=== PATIENT | female | born 1970 | race Caucasian/White ===

== ENCOUNTER 2017-01-08 01:39 | Emergency (ER) | payer MEDICARE ==
[~2017-01-08] VITALS: Ht 160 cm; Wt 63.6 kg
[2017-01-08 01:45] VITALS: BP 128/89; PULSE 97; RESP 16; O2SAT 98
--- NOTE | 2017-01-08 01:49 | ED.REPORT ---
HPI-Dental/Mouth Prob Date of Service Jan 08, 2017 ED Provider: Dr. Olvera Pt is a 46 year old female with a hx of epilepsy presenting to the ED complaining of right lower dental pain. She reports that she is going to have the tooth pulled in the morning. She denies any drainage or any other symptoms at this time. Nursing Notes Stated Complaint: DENTAL PAIN Chief Complaint: Dental Nursing Notes Reviewed: Yes Allergies: Coded Allergies: meperidine (Verified Allergy, Unknown, 01/08/17) General Time Seen by MD: 01:49 Chief Complaint Tooth pain Hx Obtained From: Patient Arrived By: Walk-in Onset Occurred: Just prior to arrival Symptom Duration: Since onset Quality: Painful Severity: Current: Moderate Severity: Maximum: Moderate Recent Healthcare: No recent doctor visit, No recent hospitalization Similar Sx Previous: No Past Medical History Past Medical History Epilepsy Past Surgical History denies Smoking History Unknown if Ever Smoker Social History Drug Use: Denies drug use Ambulatory Status Independent Review of Systems Constitutional: Denies: Weakness - generalized Ears / Nose / Throat: Reports: Toothache Respiratory: Denies: Shortness of breath GI: Denies: Vomiting Complete sys rev & neg: except as marked. Physical Exam Initial Vital Signs Vital Signs (First) Date Time Temp Pulse Resp B/P Pulse Ox O2 Delivery O2 Flow Rate FiO2 01/08/17 01:45 36.1 97 16 128/89 98 Room Air Initial VS: Reviewed, Vital signs normal General/Constitutional: Well-developed, Well-nourished Head / Eyes: Atraumatic, Normocephalic, PERRL Respiratory: Breath sounds normal, Clear to auscultation, No respiratory distress Cardiovascular: Regular rate & rhythm, Heart sounds normal, Intact distal pulses Abdomen / GI: Soft, Non-tender, No guarding, No rebound, No distention Extremities: Vascular intact, Neuro intact, No swelling, No tenderness Skin: Warm, Dry, No cyanosis Neurologic: Alert, Oriented, Nonfocal Psychiatric: Mood/affect normal, Behavior normal, Normal thought content ENT: Atraumatic, Airway patent, Mucous membranes moist Tooth #30 is openly decaying. Little bit of jaw tenderness. No swelling. Erythema and swelling of gum adjacent to tooth. Re-Eval/Medical Decision Med Decision/Clinical Course Dental decay with dental pain and possible abscess. Started on antibiotics and given a Toradol shot. She will follow up later today at [facility] [address] dental. Re-Evaluation/Progress : Time of Eval: 02:00 Patient Status: Condition improved Re-Evaluation/Progress Note: Discussed plan for discharge. Pt understands and agrees. Counseled Regarding: Diagnosis, Lab results, Need for follow-up, When/why to return to ED Discharge & Departure Primary Impression: Dental abscess Disposition: Home Discharge Condition All VS Reviewed: Yes Condition: Improved (ERASED) Patient Instructions: Dental Abscess (ED) Additional Instructions: You were given Toradol 30 mg IM in the emergency room for pain. Continue Tylenol and/or ibuprofen as needed for pain. Penicillin 500 mg by mouth 3 times a day for 10 days, #30 dispensed. Follow-up as planned at [facility] this morning. Referrals: [facility] Vicky Attestation Portions of this note were transcribed by Gamaliel Pace. I, Dr. Olvera personally performed the history, physical exam and medical decision-making; I reviewed and confirmed the accuracy of the information in the transcribed note. Signed by: Vicky Waite, 01/08/17 and 0224. copies to: [facility] Anthony Olvera MD Jan 08, 2017 01:49 GAMALIEL PACE Jan 08, 2017 02:01
[2017-01-08 02:24] VITALS: BP 130/88; PULSE 95; RESP 16; O2SAT 99
[2017-01-08] MEDS ORDERED: _Penicillin VK 500 mg Tablet PO SCH (08:30)
== END 2017-01-08 02:24 | disposition home or self-care (01) ==
LOC: SED 01:39
DX: K04.7 Periapical abscess without sinus (principal); G40.909 Epilepsy, unspecified, not intractable, without status epilepticus; Z88.5 Allergy status to narcotic agent
CPT/HCPCS: 96372; 99283; J1885